=== PATIENT | female | born 1935 | race Caucasian/White ===

== ENCOUNTER 2017-03-13 19:04 | Emergency (ER) | payer MEDICAID ==
[2017-03-13] MEDS ORDERED: DiphenhydrAMINE 50 mg/ml Inj IVP STA (19:16)
[2017-03-13 19:22] VITALS: TEMP 98
--- NOTE | 2017-03-13 19:49 | C.PDOC ---
History Of Present Illness The patient, a 81 y/o female, presents to the ED for evaluation of new onset swelling and redness which occurred around 1 hour [employer]. Patient reports taking some pills related to Parkinson's Disease prior to onset of symptoms. Otherwise , she denies shortness of breath, tongue swelling sensation, trouble swallowing. Chief Complaint (Nursing): Allergic Reaction History Per: Patient History/Exam Limitations: no limitations Onset/Duration Of Symptoms: Hrs Current Symptoms Are (Timing): Still Present Possible Cause: Medication Associated Symptoms: Swelling, Redness. denies: Dyspnea, Trouble Swallowing Home/EMS Treatment: None Additional History Per: Patient Past Medical History Reviewed: Historical Data, Nursing Documentation, Vital Signs Vital Signs: Last Vital Signs Temp 98 F 03/13/17 21:04 Pulse 71 03/13/17 21:04 Resp 16 03/13/17 21:04 BP 123/60 03/13/17 21:04 Pulse Ox 98 03/13/17 21:04 - Medical History PMH: Arthritis, Dementia, Parkinson's Disease Surgical History: No Surg Hx Family History: States: Unknown Family Hx - Social History Hx Alcohol Use: No Hx Substance Use: No - Immunization History Hx Influenza Vaccination: Yes Hx Pneumococcal Vaccination: No Review Of Systems Except As Marked, All Systems Reviewed And Found Negative. ENT: Negative for: Throat Swelling, Other (difficulty swallowing ) Respiratory: Negative for: Shortness of Breath Skin: Positive for: Other (+redness, swellling ) Physical Exam - Physical Exam Appears: Non-toxic, Other (mild distress due to itchiness ) Skin: Warm, Dry, Other (+generalized redness ) Head: Atraumatic, Normacephalic Eye(s): bilateral: Normal Inspection Oral Mucosa: Moist Tongue: Normal Appearing, No Swelling Lips: Normal Appearing, No Swelling Throat: Normal, No Erythema, No Exudate Neck: Supple Chest: Symmetrical, No Deformity, No Tenderness Cardiovascular: Rhythm Regular, No Murmur Respiratory: Normal Breath Sounds, No Rales, No Rhonchi, No Wheezing Back: Normal Inspection, No Vertebral Tenderness, No Paraspinal Tenderness Extremity: Normal ROM, Capillary Refill (less than 2 seconds ) Neurological/Psych: Oriented x3, Normal Speech, Normal Cognition Gait: Steady ED Course And Treatment O2 Sat by Pulse Oximetry: 94 Pulse Ox Interpretation: Normal Progress Note: Patient received Benadryl IV, Pepcid IV, and Solu-Medrol IV. 20: 55 - Patient feels better, itchy but less rash noted. To be discharged. Disposition Counseled Patient/Family Regarding: Diagnosis - Disposition Referrals: [facility] [Outside] Disposition: HOME/ ROUTINE Disposition Time: 20:54 Condition: IMPROVED Prescriptions: DiphenhydrAMINE [Benadryl] 25 mg PO Q4H #20 cap Methylprednisolone [Medrol Dose Pack (21 tabs)] 4 mg PO DAILY #21 mg Instructions: General Allergic Reaction (ED) Forms: Gen Discharge Inst Slovak Print Language: [place] - POA Present On Arrival: None - Clinical Impression Clinical Impression: Allergic reaction - Scribe Statement The provider has reviewed the documentation as recorded by the Scribe (Gladys Ramirez) Provider Attestation: All medical record entries made by the Scribe were at my direction and personally dictated by me. I have reviewed the chart and agree that the record accurately reflects my personal performance of the history, physical exam, medical decision making, and the department course for this patient. I have also personally directed, reviewed, and agree with the discharge instructions and disposition.
[2017-03-13 21:05] VITALS: BP 123/60; PULSE 71; RESP 16
[2017-03-13 21:30] VITALS: O2SAT 94
== END 2017-03-13 21:23 | disposition home or self-care (01) ==
LOC: C.ER 19:04
DX: T78.40XA Allergy, unspecified, initial encounter (principal); X58.XXXA Exposure to other specified factors, initial encounter
CPT/HCPCS: 96374; 96375; 99284; J1200; J2930

== ENCOUNTER 2017-04-23 01:02 | Emergency (ER) | payer MEDICAID ==
[2017-04-23] MEDS ORDERED: DiphenhydrAMINE 50 mg/ml Inj ONE (01:17)
[2017-04-23] MEDS ORDERED: DiphenhydrAMINE 50 mg/ml Inj IVP STA (01:28)
[2017-04-23] MEDS ORDERED: Sodium Chloride 0.9% 1,000 ML IV ONE (01:28)
[2017-04-23 01:33] VITALS: O2SAT 97
[2017-04-23] MEDS ORDERED: Sodium Chloride 0.9% 1,000 ML ONE (01:43)
--- NOTE | 2017-04-23 02:23 | C.PDOC ---
History Of Present Illness Patient is an 82 year old female who presents to the ER with a complaint of an redness and itchiness after eating fish. Patient was seen in the ER 1 month ago for a similar reaction after eating fish. Family attempted to give patient benadryl, however, she vomited. Denies fever or chills. Time Seen by Provider: 04/23/17 01:15 Chief Complaint (Nursing): Allergic Reaction History Per: Patient History/Exam Limitations: no limitations Onset/Duration Of Symptoms: Hrs Current Symptoms Are (Timing): Still Present Context: Food (Fish) Possible Cause: Food (Fish) Associated Symptoms: Itching, Redness Home/EMS Treatment: Benadryl Recent travel outside of the [place]: No Past Medical History Reviewed: Historical Data, Nursing Documentation, Vital Signs Vital Signs: Last Vital Signs Temp 97.4 F L 04/23/17 01:20 Pulse 90 04/23/17 01:20 Resp 18 04/23/17 01:20 BP 133/76 04/23/17 01:20 Pulse Ox 97 04/23/17 02:31 - Medical History PMH: Arthritis, Dementia, Parkinson's Disease Surgical History: No Surg Hx Family History: States: Unknown Family Hx - Social History Hx Alcohol Use: No Hx Substance Use: No - Immunization History Hx Influenza Vaccination: Yes Hx Pneumococcal Vaccination: No Review Of Systems Constitutional: Negative for: Fever, Chills Gastrointestinal: Negative for: Nausea Skin: Positive for: Other (Redness. Itchiness.) Physical Exam - Physical Exam Appears: Non-toxic, No Acute Distress Skin: Warm, Dry, Other (Generalized redness) Head: Atraumatic, Normacephalic Oral Mucosa: Moist Tongue: No Swelling Lips: No Swelling Chest: Symmetrical, No Tenderness Cardiovascular: Rhythm Regular, No Murmur Respiratory: Normal Breath Sounds, No Rales, No Rhonchi, No Wheezing Gastrointestinal/Abdominal: Soft, No Tenderness Neurological/Psych: Oriented x3, Normal Speech, Normal Cognition ED Course And Treatment O2 Sat by Pulse Oximetry: 97 (Room air) Pulse Ox Interpretation: Normal Medical Decision Making Medical Decision Making: Impression: 82 year old female with an allergic reaction. Plan: * Benadryl * Pepcid * Solu-medrol * IV fluids * Markedly improved post meds Discussed not eating fish with pt and family Pt stable for dc Disposition Counseled Patient/Family Regarding: Diagnosis, Need For Followup - Disposition Disposition: HOME/ ROUTINE Disposition Time: 03:34 Condition: GOOD Prescriptions: DiphenhydrAMINE [Benadryl] 1 cap PO Q6H PRN #20 cap PRN Reason: rash or itching Famotidine [Pepcid] 1 tab PO BID #10 tab Prednisone 1 tab PO DAILY #4 tablet Instructions: Food Allergy (ED), General Allergic Reaction (ED) Print Language: ITALIAN - Clinical Impression Clinical Impression: Anaphylactic reaction due to fish - Scribe Statement The provider has reviewed the documentation as recorded by the Scribarley Cardoso All medical record entries made by the Gen were at my direction and personally dictated by me. I have reviewed the chart and agree that the record accurately reflects my personal performance of the history, physical exam, medical decision making, and the department course for this patient. I have also personally directed, reviewed, and agree with the discharge instructions and disposition.
[2017-04-23 04:21] VITALS: BP 100/47; PULSE 88; RESP 84; TEMP 98
== END 2017-04-23 04:19 | disposition home or self-care (01) ==
LOC: C.ER 01:02
DX: T78.03XA Anaphylactic reaction due to other fish, initial encounter (principal)
CPT/HCPCS: 96361; 96374; 96375; 99283; J1200; J2930; J7040

== ENCOUNTER 2017-04-25 18:15 | Emergency (ER) | payer MEDICAID ==
[2017-04-25 20:29] LABS: BASO # 0.1 K/uL (0.0-0.2); BASO % 1.1 % (0.0-2.0); EOS # 0.1 K/uL (0.0-0.7); EOS % 1.3 % (0.0-4.0); HEMATOCRIT 40.6 % (34.0-47.0); LYMPH # 3.9 K/uL (1.0-4.3); LYMPH % 35.3 % (20.0-40.0); MEAN CELL VOLUME 89.9 fL (81.0-99.0); MEAN CORPUSCULAR HEMOGLOBIN 29.8 pg (27.0-31.0); MEAN CORPUSCULAR HGB CONC 33.2 g/dL (33.0-37.0); MEAN PLATELET VOLUME 7.7 fL (7.2-11.7); MONO # 0.8 K/uL (0.0-0.8); MONO % 7.4 % (0.0-10.0); RED CELL DISTRIBUTION WIDTH 15.1 % (11.5-14.5); WHITE BLOOD COUNT 11.1 K/uL (4.8-10.8)
--- NOTE | 2017-04-25 20:56 | CT ---
EXAM: CT Head Without Intravenous Contrast CLINICAL HISTORY: 82 years old, female; Pain and signs and symptoms; Dizziness; Headache; Headache not specified; Additional info: Dizziness/headache x 4days TECHNIQUE: Axial computed tomography images of the head/brain without intravenous contrast. This CT exam was performed using one or more of the following dose reduction techniques: automated exposure control, adjustment of the mA and/or kV according to patient size, and/or use of iterative reconstruction technique. COMPARISON: CT - HEAD W/O CONTRAST 03/14/2016 8:21:04 PM FINDINGS: Brain: Prominence of the sulci and ventricular system consistent with atrophy. Diffuse hypodensity within the white matter consistent with chronic small vessel ischemic change. No intracranial mass, mass effect, or midline shift. No hemorrhage. Ventricles: No hydrocephalus. Bones/joints: Unremarkable. No acute fracture. Soft tissues: Unremarkable. Sinuses: Unremarkable as visualized. No acute sinusitis. Mastoid air cells: Unremarkable as visualized. No mastoid effusion. IMPRESSION: No acute intracranial abnormality.
[2017-04-25 20:57] LABS: CHLORIDE 104 mmol/L (98-107); SODIUM 141 mmol/L (132-148)
[2017-04-25 20:58] LABS: POTASSIUM 3.8 mmol/L (3.6-5.2)
[2017-04-25 21:00] LABS: ALB/GLOB RATIO 1.4 (1.0-2.1); ALKALINE PHOSPHATASE 80 U/L (38-126); ALT/SGPT 19 U/L (9-52); AST/SGOT 22 U/L (14-36); BILIRUBIN,TOTAL 0.5 mg/dL (0.2-1.3); BLOOD UREA NITROGEN 17 mg/dL (7-17); CARBON DIOXIDE 24 mmol/L (22-30); GFR AFRICAN-AMERICAN > 60; TOTAL PROTEIN 7.3 g/dL (6.3-8.3)
[2017-04-25 21:01] LABS: CALCIUM 8.9 mg/dl (8.6-10.4); GLUCOSE,RANDOM 103 mg/dL (65-105)
--- NOTE | 2017-04-25 21:03 | C.PDOC ---
History Of Present Illness 82 y/o female presents to the ED with complaints of intermittent headache for the past week, worsening the last couple days; 4/10 discomfort. Pt also reports associated nausea. Denies vision changes, vomiting, fever, chills or any other complaints. Time Seen by Provider: 04/25/17 20:52 Chief Complaint (Nursing): Headache History Per: Patient History/Exam Limitations: no limitations Onset/Duration Of Symptoms: Days Current Symptoms Are (Timing): Worse Severity: Moderate Pain Scale Rating Of: 4 Quality: "Pain" Preceeding Symptoms: denies: Visual Disturbances Associated Symptoms: Nausea. denies: Blurred Vision, Vomiting Recent travel outside of the [place]: No Past Medical History Reviewed: Historical Data, Nursing Documentation, Vital Signs Vital Signs: Last Vital Signs Temp 97.7 F 04/25/17 22:05 Pulse 75 04/25/17 22:05 Resp 16 04/25/17 22:05 BP 176/84 H 04/25/17 22:05 Pulse Ox 98 04/25/17 22:05 - Medical History PMH: Arthritis, Dementia, Gastritis, Parkinson's Disease Family History: States: Unknown Family Hx - Social History Hx Alcohol Use: No Hx Substance Use: No - Immunization History Hx Tetanus Toxoid Vaccination: No Hx Influenza Vaccination: Yes Hx Pneumococcal Vaccination: No Review Of Systems Constitutional: Negative for: Fever, Chills Eyes: Negative for: Vision Change Gastrointestinal: Positive for: Nausea. Negative for: Vomiting Neurological: Positive for: Headache Physical Exam - Physical Exam Appears: Non-toxic, No Acute Distress Skin: Warm, Dry, No Rash Head: Atraumatic, Normacephalic Eye(s): bilateral: PERRL, EOMI, right: Other (exudate over right eye), left: Normal Inspection Ear(s): Bilateral: Normal Oral Mucosa: Moist Throat: No Erythema, No Exudate Neck: No Midline Cervical Tenderness, No Paracervical Tenderness, Supple, Other (no nuchal rigidity) Chest: Symmetrical Cardiovascular: Rhythm Regular, No Murmur Respiratory: No Rales, No Rhonchi, No Wheezing Gastrointestinal/Abdominal: Soft, No Tenderness, No Distention Back: No CVA Tenderness Extremity: Normal ROM Extremity: Bilateral: Atraumatic Neurological/Psych: Oriented x3, Normal Speech, Normal Cognition Gait: Steady ED Course And Treatment - Laboratory Results Result Diagrams: 04/25/17 20:24 04/25/17 20:24 O2 Sat by Pulse Oximetry: 98 (room air) Pulse Ox Interpretation: Normal - CT Scan/US CT head Other Rad Studies (CT/US): Read By Radiologist, Radiology Report Reviewed CT/US Interpretation: EXAM: CT Head Without Intravenous Contrast. CLINICAL HISTORY: 82 years old, female; Pain and signs and symptoms; Dizziness; Headache ; Headache not specified;. Additional info: Dizziness/headache x 4days. TECHNIQUE: Axial computed tomography images of the head/brain without intravenous contrast. This CT exam. was performed using one or more of the following dose reduction techniques: automated exposure. control, adjustment of the mA and/or kV according to patient size, and/or use of iterative. reconstruction technique. COMPARISON: CT - HEAD W/O CONTRAST 03/14/2016 8:21:04 PM. FINDINGS: Brain: Prominence of the sulci and ventricular system consistent with atrophy. Diffuse hypodensity. within the white matter consistent with chronic small vessel ischemic change. No intracranial mass,. mass effect, or midline shift. No hemorrhage. Ventricles: No hydrocephalus. Bones/joints: Unremarkable. No acute fracture. Soft tissues: Unremarkable. Sinuses: Unremarkable as visualized. No acute sinusitis. Mastoid air cells: Unremarkable as visualized. No mastoid effusion. IMPRESSION: No acute intracranial abnormality. Reevaluation Time: 23:09 Reassessment Condition: Improved Medical Decision Making Medical Decision Making: Upon provider reevaluation patient is feeling better, is medically stable, and requires no further treatment in the ED at this time. Patient will be discharged home with Rx for toradol, blph 10 . Counseling was provided and all questions were answered regarding diagnosis and need for follow up with dr mao. There is agreement to discharge plan. Return if symptoms persist or worsen. Disposition Counseled Patient/Family Regarding: Studies Performed, Diagnosis, Need For Followup, Rx Given - Disposition Referrals: Shaik Mao MD [Staff Provider] - Disposition: HOME/ ROUTINE Disposition Time: 23:09 Condition: FAIR Additional Instructions: Please return if symptoms recur. Prescriptions: Sulfacetamide Sodium [Bleph 10% Eye Drops] 2 drop OD 5XD #1 bottle traMADol [Ultram] 25 mg PO TID PRN #15 tab PRN Reason: Pain, Moderate (4-7) Instructions: Acute Headache (DC), Conjunctivitis (ED) Print Language: CITIZ[place] - Clinical Impression Clinical Impression: Headache, Acute conjunctivitis - Scribe Statement The provider has reviewed the documentation as recorded by the Gen Crane Provider Attestation: All medical record entries made by the Gen were at my direction and personally dictated by me. I have reviewed the chart and agree that the record accurately reflects my personal performance of the history, physical exam, medical decision making, and the department course for this patient. I have also personally directed, reviewed, and agree with the discharge instructions and disposition.
[2017-04-25 22:06] VITALS: PULSE 75
[2017-04-26 00:18] VITALS: BP 152/80; RESP 20; TEMP 98.1; O2SAT 99
== END 2017-04-26 | disposition home or self-care (01) ==
LOC: C.ER 18:15
DX: H10.31 Unspecified acute conjunctivitis, right eye (principal); R51 Headache
CPT/HCPCS: 70450; 80053; 84484; 85025; 85610; 85730; 96374; 99285; J1885

== ENCOUNTER 2017-05-19 11:28 | Inpatient (IN) | payer MEDICAID ==
--- NOTE | 2017-05-19 11:53 | C.PDOC ---
History Of Present Illness 82 year old female presents to the ED with complaints of blood in her stool since this morning. As per patient's daughter, patient has intermittent abdominal pain for the last few months and currently has abdominal pain exacerbated by movement. Patient's daughter also notes history of Parkinson's and right eye corneal transplant. Patient denies any fever, vomiting, or diarrhea. Time Seen by Provider: 05/19/17 11:39 Chief Complaint (Nursing): Abdominal Pain History Per: Family (daughter ) History/Exam Limitations: no limitations Onset/Duration Of Symptoms: Hrs (blood in the stool ), Intermittent Episodes ( of abdominal pain) Current Symptoms Are (Timing): Still Present Location Of Pain/Discomfort: Other (diffuse lower abdominal pain) Radiation Of Pain To:: None Quality Of Discomfort: "Pain" Associated Symptoms: denies: Fever, Chills, Nausea, Vomiting, Diarrhea Exacerbating Factors: Movement Last Bowel Movement: Today Recent travel outside of the [place]: No Additional History Per: Patient, Prior Records Abnormal Vaginal Bleeding: No Past Medical History Reviewed: Historical Data, Nursing Documentation, Vital Signs Vital Signs: Last Vital Signs Temp 99.1 F 05/19/17 11:50 Pulse 86 05/19/17 11:50 Resp 16 05/19/17 11:50 BP 110/67 05/19/17 11:50 Pulse Ox 97 05/19/17 11:50 - Medical History PMH: Arthritis, Dementia, Gastritis, Parkinson's Disease Family History: States: Other Other Family History: non-contributory - Social History Hx Alcohol Use: No Hx Substance Use: No - Immunization History Hx Tetanus Toxoid Vaccination: No Hx Influenza Vaccination: Yes Hx Pneumococcal Vaccination: No Review Of Systems Except As Marked, All Systems Reviewed And Found Negative. Constitutional: Negative for: Fever, Chills Cardiovascular: Negative for: Chest Pain, Palpitations Respiratory: Negative for: Cough, Shortness of Breath Gastrointestinal: Positive for: Abdominal Pain, Hematochezia. Negative for: Nausea, Vomiting, Diarrhea Physical Exam - Physical Exam Appears: Non-toxic, No Acute Distress Skin: Warm, Dry Head: Atraumatic, Normacephalic Oral Mucosa: Moist Neck: Supple Chest: Symmetrical, No Deformity Cardiovascular: Rhythm Regular Respiratory: Normal Breath Sounds, No Accessory Muscle Use, No Rhonchi, No Wheezing Gastrointestinal/Abdominal: Soft, Tenderness (diffuse mild tenderness, non-focal ), No Distention, No Guarding, No Rebound Rectal: Heme Positive, Maroon Stool Extremity: Normal ROM, No Tenderness Neurological/Psych: Oriented x3 ED Course And Treatment - Laboratory Results Result Diagrams: 05/19/17 12:39 05/19/17 12:39 Medical Decision Making Medical Decision Making: EKG interpretation: NSR 73 Disposition - Disposition Disposition: HOSPITALIZED Disposition Time: 13:24 Condition: STABLE - Clinical Impression Clinical Impression: Lower GI bleed - Scribe Statement The provider has reviewed the documentation as recorded by the Dreibarley aFrfan All medical record entries made by the Gen were at my direction and personally dictated by me. I have reviewed the chart and agree that the record accurately reflects my personal performance of the history, physical exam, medical decision making, and the department course for this patient. I have also personally directed, reviewed, and agree with the discharge instructions and disposition.
[2017-05-19] MEDS ORDERED: Sodium Chloride 0.9% 1,000 ML IV ONE (12:21)
--- NOTE | 2017-05-19 12:37 | RAD ---
HISTORY: weak COMPARISON: No prior. FINDINGS: LUNGS: Poor inspiration with low lung volumes, crowded bronchovascular markings and mild bibasilar atelectasis left greater than right. . PLEURA: No significant pleural effusion identified, no pneumothorax apparent. CARDIOVASCULAR: Mild cardiomegaly. OSSEOUS STRUCTURES: Mild multilevel degenerative spondylosis of the thoracic spine. Mild degenerative osteoarthritis both shoulder girdles. VISUALIZED UPPER ABDOMEN: Normal. OTHER FINDINGS: None. IMPRESSION: Poor inspiration with low lung volumes, crowded bronchovascular markings and mild bibasilar atelectasis left greater than right. .
[2017-05-19] MEDS ORDERED: Sodium Chloride 0.9% 1,000 ML ONE (12:44)
[2017-05-19 12:48] LABS: BASO # 0.1 K/uL (0.0-0.2); EOS % 0.3 % (0.0-4.0); HEMOGLOBIN 13.9 g/dL (11.0-16.0); LYMPH # 2.3 K/uL (1.0-4.3); LYMPH % 19.6 % (20.0-40.0); MEAN CELL VOLUME 89.5 fL (81.0-99.0); MEAN CORPUSCULAR HGB CONC 33.5 g/dL (33.0-37.0); MEAN PLATELET VOLUME 8.2 fL (7.2-11.7); MONO # 1.2 K/uL (0.0-0.8); MONO % 10.2 % (0.0-10.0); NEUT # 7.9 K/uL (1.8-7.0); NEUT % 68.9 % (50.0-75.0); RBC 4.62 Mil/uL (3.80-5.20); RED CELL DISTRIBUTION WIDTH 14.4 % (11.5-14.5); WHITE BLOOD COUNT 11.5 K/uL (4.8-10.8)
[2017-05-19 12:52] LABS: ALBUMIN 4.3 g/dL (3.5-5.0)
[2017-05-19 12:54] LABS: AST/SGOT 30 U/L (14-36); GFR AFRICAN-AMERICAN > 60; GFR NON-AFRICAN AMERICAN > 60
[2017-05-19 12:55] LABS: ALB/GLOB RATIO 1.3 (1.0-2.1); ALT/SGPT 20 U/L (9-52); BLOOD UREA NITROGEN 10 mg/dL (7-17); CALCIUM 9.2 mg/dl (8.6-10.4); LIPASE 21 U/L (23-300)
--- NOTE | 2017-05-19 18:00 | CP.PCM.HP ---
Past Patient History - Infectious Disease Hx of Infectious Diseases: None - Past Social History Smoking Status: Never Smoked - NEUROLOGICAL Hx Dementia: Yes Hx Parkinson's Disease: Yes - HEENT Other/Comment: corneal transplant - MUSCULOSKELETAL/RHEUMATOLOGICAL Hx Arthritis: Yes - GASTROINTESTINAL Hx Gastritis: Yes - PSYCHIATRIC Hx Substance Use: No - SURGICAL HISTORY Other/Comment: left foot surgery - ANESTHESIA Hx Anesthesia: Yes Hx Anesthesia Reactions: No Meds Allergies/Adverse Reactions: Allergies Allergy/AdvReac Type Severity Reaction Status Date / Time shellfish derived Allergy Verified 05/19/17 11:50 seafood Allergy Uncoded 04/25/17 19:00 Physical Exam - Constitutional Appears: Well - Head Exam Head Exam: ATRAUMATIC, NORMAL INSPECTION, NORMOCEPHALIC - Eye Exam Eye Exam: EOMI, Normal appearance, PERRL Pupil Exam: NORMAL ACCOMODATION, PERRL - ENT Exam ENT Exam: Mucous Membranes Moist, Normal Exam - Neck Exam Neck exam: Positive for: Normal Inspection - Respiratory Exam Respiratory Exam: Decreased Breath Sounds - Cardiovascular Exam Cardiovascular Exam: REGULAR RHYTHM, +S1, +S2 - GI/Abdominal Exam GI & Abdominal Exam: Diminished Bowel Sounds, Soft - Rectal Exam Rectal Exam: Deferred Results - Vital Signs Recent Vital Signs: Last Vital Signs Temp 98.6 F 05/19/17 17:00 Pulse 72 05/19/17 17:00 Resp 20 05/19/17 17:00 BP 120/73 05/19/17 17:00 Pulse Ox 97 05/19/17 17:00 - Labs Result Diagrams: 05/19/17 12:39 05/19/17 12:39
--- NOTE | 2017-05-20 08:04 | CP.PCM.CON ---
<Bessie Barbosa - Last Filed: 05/20/17 09:59> History of Present Illness - History of Present Illness History of Present Illness: Gastroenterology Fellow/PGY5 Consult Note 82 year old female with history of Parkinson's disease presenting with abdominal pain and black stool. Patient oriented to person and place with history obtained via evly device. Patient describes daily, non- progressive, moderate left marian-abdomen pain for the last two months. She notes black stools for the last week with last bowel movement being three days ago. Denies prior similar episodes. Associated weight loss (unable to quantify), loss of appetite, dysuria, and polyuria. She notes prior history of daily formed bowel habit without straining or hard stools. Denies nausea, vomiting, hematemesis, acid reflux, indigestion, heartburn, bloating, diarrhea, constipation, hematochezia, chest pain, shortness of breath, sick contacts, recent antibiotics, recent travel, NSAID use, or Alcohol use. No prior EGD or colonoscopy. 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 - MUSCULOSKELETAL/RHEUMATOLOGICAL Hx Arthritis: Yes Hx Falls: No - GASTROINTESTINAL Hx Gastritis: Yes - PSYCHIATRIC Hx Substance Use: No - SURGICAL HISTORY Other/Comment: left foot surgery - ANESTHESIA Hx Anesthesia: Yes Hx Anesthesia Reactions: No Meds Allergies/Adverse Reactions: Allergies Allergy/AdvReac Type Severity Reaction Status Date / Time shellfish derived Allergy Verified 05/19/17 11:50 seafood Allergy Uncoded 04/25/17 19:00 - Medications Medications: Current Medications Carbidopa/Levodopa (Sinemet 10/100) 1 tab PO TID [facility] Clonazepam (Klonopin) 0.5 mg PO HS [facility] Last Admin: 05/19/17 21:21 Dose: 0.5 mg Ergocalciferol (Drisdol 50,000 Intl Units Cap) 1 cap PO QWK [facility] Famotidine (Pepcid) 20 mg PO BID [facility] Gabapentin (Neurontin) 300 mg PO BID [facility] Meclizine HCl (Antivert) 12.5 mg PO BID [facility] Pantoprazole Sodium (Protonix Ec Tab) 40 mg PO DAILY [facility] Sertraline HCl (Zoloft) 50 mg PO DAILY [facility] Vitamin B Complex/Vitamin C (Berocca) 1 tab PO DAILY [facility] Physical Exam - Constitutional Appears: Non-toxic, No Acute Distress - Head Exam Head Exam: ATRAUMATIC, NORMOCEPHALIC - Eye Exam Eye Exam: EOMI, PERRL Pupil Exam: PERRL. absent: Miosis, Mydriatic - ENT Exam ENT Exam: Mucous Membranes Moist, Normal Oropharynx - Neck Exam Neck exam: Positive for: Full Rom, Normal Inspection - Respiratory Exam Respiratory Exam: Clear to Auscultation Bilateral. absent: Rales, Rhonchi, Wheezes - Cardiovascular Exam Cardiovascular Exam: RRR, +S1, +S2. absent: Gallop, Rubs - GI/Abdominal Exam GI & Abdominal Exam: Normal Bowel Sounds, Soft, Tenderness. absent: Distended, Firm, Guarding, Organomegaly, Rebound, Rigid Additional comments: LUQ and LLQ tenderness to palpation - Rectal Exam Rectal Exam: absent: Hemorrhoids, Fecal Impaction Additional comments: maroon formed soft stool in rectal vault - Extremities Exam Extremities exam: Positive for: normal inspection. Negative for: pedal edema - Neurological Exam Neurological exam: Alert - Psychiatric Exam Psychiatric exam: Normal Affect, Normal Mood - Skin Skin Exam: Dry, Intact, Normal Color, Warm Results - Vital Signs Recent Vital Signs: Last Vital Signs Temp 98.6 F 05/19/17 23:37 Pulse 73 05/19/17 23:37 Resp 20 05/19/17 23:37 BP 135/69 05/19/17 23:37 Pulse Ox 96 05/19/17 23:37 - Labs Result Diagrams: 05/20/17 08:23 05/20/17 08:23 Assessment & Plan - Assessment and Plan (Free Text) Assessment: 82 year old female with history of Parkinson's disease presenting with abdominal pain and black stool. Active treatment of GI bleed and abdominal pain. No prior EGD or colonoscopy. Plan: >DDx: constipation, diverticular bleed, colitis >H/H stable >supportive care: PPI, pain control >clear liquid diet as tolerated >CT A/P IV contrast to evaluate abdominal pain and acute pathology >U/A with urine culture to evaluate dysuria >will follow clinical course <Shashi Marc - Last Filed: 05/20/17 11:39> Meds - Medications Medications: Current Medications Carbidopa/Levodopa (Sinemet 10/100) 1 tab PO TID [facility] Last Admin: 05/20/17 09:14 Dose: 1 tab Clonazepam (Klonopin) 0.5 mg PO HS [facility] Last Admin: 05/19/17 21:21 Dose: 0.5 mg Ergocalciferol (Drisdol 50,000 Intl Units Cap) 1 cap PO QWK [facility] Famotidine (Pepcid) 20 mg PO BID [facility] Last Admin: 05/20/17 09:08 Dose: 20 mg Gabapentin (Neurontin) 300 mg PO BID [facility] Last Admin: 05/20/17 09:08 Dose: 300 mg Meclizine HCl (Antivert) 12.5 mg PO BID [facility] Last Admin: 05/20/17 09:08 Dose: 12.5 mg Pantoprazole Sodium (Protonix Ec Tab) 40 mg PO DAILY [facility] Last Admin: 05/20/17 09:08 Dose: 40 mg Potassium Chloride (K-Dur 20 Meq Er Tab) 40 meq PO DAILY [facility] Stop: 05/22/17 10:01 Last Admin: 05/20/17 10:47 Dose: 40 meq Sertraline HCl (Zoloft) 50 mg PO DAILY [facility] Last Admin: 05/20/17 09:08 Dose: 50 mg Vitamin B Complex/Vitamin C (Berocca) 1 tab PO DAILY [facility] Last Admin: 05/20/17 09:08 Dose: 1 tab Results - Vital Signs Recent Vital Signs: Last Vital Signs Temp 98.6 F 05/19/17 23:37 Pulse 73 05/19/17 23:37 Resp 20 05/19/17 23:37 BP 135/69 05/19/17 23:37 Pulse Ox 96 05/19/17 23:37 - Labs Result Diagrams: 05/20/17 08:23 05/20/17 08:23 Labs: Laboratory Results - last 24 hr 05/20/17 05/20/17 05/20/17 08:23 08:23 10:22 WBC 8.3 RBC 4.34 Hgb 13.2 Hct 38.8 MCV 89.5 MCH 30.3 MCHC 33.9 RDW 14.3 Plt Count 247 MPV 8.6 Neut % (Auto) 58.1 Lymph % (Auto) 26.9 Lamar % (Auto) 11.3 H Eos % (Auto) 2.6 Baso % (Auto) 1.1 Neut # 4.8 Lymph # 2.2 Lamar # 0.9 H Eos # 0.2 Baso # 0.1 Sodium 143 Potassium 3.4 L Chloride 108 H Carbon Dioxide 25 Anion Gap 14 BUN 7 Creatinine 0.6 L Est GFR ( Amer) > 60 Est GFR (Non-Af Amer) > 60 Random Glucose 105 Calcium 8.7 Total Bilirubin 1.0 AST 22 ALT 21 Alkaline Phosphatase 66 Total Protein 6.5 Albumin 3.6 Globulin 2.9 Albumin/Globulin Ratio 1.2 Urine Color Yellow Urine Clarity Hazy Urine pH 6.0 Ur Specific [place] 1.010 Urine Protein Negative Urine Glucose (UA) Normal Urine Ketones Trace Urine Blood 2+ H Urine Nitrate Negative Urine Bilirubin Negative Urine Urobilinogen Normal Ur Leukocyte Esterase Neg Urine WBC (Auto) 3 Urine RBC (Auto) 24 H Ur Squamous Epith Cells 4 Attending/Attestation - Attestation I have personally seen and examined this patient.: Yes I have fully participated in the care of the patient.: Yes I have reviewed all pertinent clinical information: Yes Notes (Text): 05/20/17 11:38 82 year old female with h/o Parkinson's disease admitted with abdominal pain and blood in the stool. 1. Abdominal pain 2. Blood in the stool Plan: -no significant anemia or drop in hemoglobin -bleeding may be hemorrhoidal, although she doesn't have prior colonoscopy -recommend CT abdomen/pelvis to evaluate abdominal pain further -supportive care in the mean time with pain control -monitor for further bleeding -liquid diet -evaluate for UTI as above
[2017-05-20 08:35] LABS: BASO # 0.1 K/uL (0.0-0.2); BASO % 1.1 % (0.0-2.0); EOS # 0.2 K/uL (0.0-0.7); EOS % 2.6 % (0.0-4.0); HEMOGLOBIN 13.2 g/dL (11.0-16.0); LYMPH # 2.2 K/uL (1.0-4.3); LYMPH % 26.9 % (20.0-40.0); MEAN CELL VOLUME 89.5 fL (81.0-99.0); MEAN CORPUSCULAR HEMOGLOBIN 30.3 pg (27.0-31.0); MEAN CORPUSCULAR HGB CONC 33.9 g/dL (33.0-37.0); MEAN PLATELET VOLUME 8.6 fL (7.2-11.7); MONO # 0.9 K/uL (0.0-0.8); MONO % 11.3 % (0.0-10.0); NEUT # 4.8 K/uL (1.8-7.0); NEUT % 58.1 % (50.0-75.0); RBC 4.34 Mil/uL (3.80-5.20); RED CELL DISTRIBUTION WIDTH 14.3 % (11.5-14.5); WHITE BLOOD COUNT 8.3 K/uL (4.8-10.8)
[2017-05-20 08:44] LABS: ALBUMIN 3.6 g/dL (3.5-5.0)
[2017-05-20 08:47] LABS: ALB/GLOB RATIO 1.2 (1.0-2.1); ALT/SGPT 21 U/L (9-52); AST/SGOT 22 U/L (14-36); GFR AFRICAN-AMERICAN > 60; GFR NON-AFRICAN AMERICAN > 60
[2017-05-20 08:48] LABS: BLOOD UREA NITROGEN 7 mg/dL (7-17); CALCIUM 8.7 mg/dl (8.6-10.4)
[2017-05-20] MEDS: Pantoprazole 40 mg EC Tab PO SCH (09:08)
[2017-05-20] MEDS: Vitamin B Complex/Vitamin C Tab PO SCH (09:08)
[2017-05-20 10:36] LABS: SQUAMOUS EPITHIAL 4 /hpf (0-5); URINE BILIRUBIN NEGATIVE (NEGATIVE); URINE BLOOD 2+ (NEGATIVE); URINE CLARITY Hazy (Clear); URINE COLOR Yellow (YELLOW); URINE GLUCOSE (UA) NORMAL (Normal); URINE LEUKOCYTE ESTERASE NEG Leu/uL (Negative); URINE NITRATE NEGATIVE (NEGATIVE); URINE PROTEIN NEGATIVE (NEGATIVE); URINE UROBILINOGEN NORMAL mg/dL (0.2-1.0)
[2017-05-20] MEDS: Potassium Chloride 20 mEq ER Tab PO SCH (10:47)
--- NOTE | 2017-05-20 14:24 | CP.PCM.PN ---
Subjective - Date & Time of Evaluation Date of Evaluation: 05/20/17 Time of Evaluation: 09:00 - Subjective Subjective: clinically same Objective - Vital Signs/Intake and Output Vital Signs (last 24 hours): Temp Pulse Resp BP Pulse Ox 98.6 F 73 20 135/69 96 05/19/17 23:37 05/19/17 23:37 05/19/17 23:37 05/19/17 23:37 05/19/17 23:37 Intake and Output: 05/20/17 05/20/17 06:59 18:59 Intake Total 150 Balance 150 - Medications Medications: Current Medications Carbidopa/Levodopa (Sinemet 10/100) 1 tab PO TID [facility] Last Admin: 05/20/17 13:11 Dose: 1 tab Clonazepam (Klonopin) 0.5 mg PO HS [facility] Last Admin: 05/19/17 21:21 Dose: 0.5 mg Ergocalciferol (Drisdol 50,000 Intl Units Cap) 1 cap PO QWK [facility] Famotidine (Pepcid) 20 mg PO BID [facility] Last Admin: 05/20/17 09:08 Dose: 20 mg Gabapentin (Neurontin) 300 mg PO BID [facility] Last Admin: 05/20/17 09:08 Dose: 300 mg Meclizine HCl (Antivert) 12.5 mg PO BID [facility] Last Admin: 05/20/17 09:08 Dose: 12.5 mg Pantoprazole Sodium (Protonix Ec Tab) 40 mg PO DAILY [facility] Last Admin: 05/20/17 09:08 Dose: 40 mg Potassium Chloride (K-Dur 20 Meq Er Tab) 40 meq PO DAILY [facility] Stop: 05/22/17 10:01 Last Admin: 05/20/17 10:47 Dose: 40 meq Sertraline HCl (Zoloft) 50 mg PO DAILY [facility] Last Admin: 05/20/17 09:08 Dose: 50 mg Vitamin B Complex/Vitamin C (Berocca) 1 tab PO DAILY [facility] Last Admin: 05/20/17 09:08 Dose: 1 tab - Labs Labs: 05/20/17 08:23 05/20/17 08:23 - Constitutional Appears: Well - Head Exam Head Exam: ATRAUMATIC, NORMAL INSPECTION, NORMOCEPHALIC - Eye Exam Eye Exam: EOMI, Normal appearance, PERRL Pupil Exam: NORMAL ACCOMODATION, PERRL - ENT Exam ENT Exam: Mucous Membranes Moist, Normal Exam - Neck Exam Neck Exam: Full ROM, Normal Inspection. absent: Lymphadenopathy - Respiratory Exam Respiratory Exam: Decreased Breath Sounds - Cardiovascular Exam Cardiovascular Exam: REGULAR RHYTHM, +S1, +S2 - GI/Abdominal Exam GI & Abdominal Exam: Soft, Diminished Bowel Sounds - Rectal Exam Rectal Exam: Deferred
--- NOTE | 2017-05-20 14:57 | CT ---
CT abdomen and pelvis History: Abdominal pain. Comparison: None available. Technique: Multi-echo multiplanar sequences were performed through the abdomen and pelvis without the use of intravenous contrast. Subsequently, sagittal and coronal reformatted images were obtained. This CT exam was performed using one or more of the following dose reduction techniques: Automated exposure control, adjustment of the mA and/or kV according to patient size, and/or use of iterative reconstruction technique. Findings: Please note this is a limited evaluation of the abdomen and pelvis given the lack of oral and intravenous contrast. Atelectasis at the lung bases. Prominent liver with mild fatty infiltration. Distended gallbladder. Spleen is preserved. Nodular thickening of the adrenals. Fatty atrophy of the pancreas. Upper abdominal bowel is preserved. Right kidney: Multiple low-attenuation lesions seen throughout the right kidney, the largest of which is seen in the midpole measuring up to 2.6 centimeters demonstrating a Hounsfield unit attenuation of 2 suggestive for a cyst. An additional more exophytic lesion seen off the lateral aspect of the midpole more inferiorly in the right kidney measures up to 1.2 centimeters demonstrating a Hounsfield unit attenuation of 19, indeterminate. These lesions may be better evaluated with ultrasound and or multiphasic CT or MR. Underdistended urinary bladder. Heterogeneous uterus. Under distended sigmoid colon. Fecal retention in the colon. Fluid-filled colon suggestive for diarrhea. Appendix is preserved. Calcification and plaque within the aorta and iliac vessels. Few shotty para-aortic and mesenteric lymph nodes. Degenerative changes in the spine. Grade 1 anterolisthesis of L5 on S1 with associated pars defects. Multilevel posterior disc osteophyte complexes. Prominent dextroscoliotic curvature of the lower lumbar spine. Impression: Please note this is a limited evaluation of the abdomen and pelvis given the lack of oral and intravenous contrast. 1. Under distended sigmoid colon. Fecal retention in parts of the colon. Parts of the colon are fluid-filled suggestive for diarrhea. 2. Multiple low-attenuation lesions seen throughout the right kidney, the largest of which is seen in the midpole measuring up to 2.6 centimeters demonstrating a Hounsfield unit attenuation of 2 suggestive for a cyst. An additional more exophytic lesion seen off the lateral aspect of the midpole more inferiorly in the right kidney measures up to 1.2 centimeters demonstrating a Hounsfield unit attenuation of 19, is indeterminate. These lesions may be better evaluated with ultrasound and or multiphasic CT or MR. 3. Atelectasis at the lung bases. 4. Prominent liver with mild fatty infiltration. 5. Distended gallbladder. 6. Nodular thickening of the adrenals. 7. Fatty atrophy of the pancreas. 8. Grade 1 anterolisthesis of L5 on S1 with associated pars defects. Multilevel posterior disc osteophyte complexes. Prominent dextroscoliotic curvature of the lower lumbar spine.
[2017-05-20] MEDS: Potassium Chloride 10 mEq ER Tab PO SCH (18:41)
[2017-05-21] MEDS: Potassium Chloride 10 mEq ER Tab PO SCH (08:30)
[2017-05-21 08:41] LABS: BASO # 0.1 K/uL (0.0-0.2); BASO % 1.1 % (0.0-2.0); EOS # 0.3 K/uL (0.0-0.7); EOS % 4.1 % (0.0-4.0); HEMOGLOBIN 13.4 g/dL (11.0-16.0); LYMPH # 2.8 K/uL (1.0-4.3); LYMPH % 36.4 % (20.0-40.0); MEAN CELL VOLUME 89.7 fL (81.0-99.0); MEAN CORPUSCULAR HEMOGLOBIN 30.2 pg (27.0-31.0); MEAN CORPUSCULAR HGB CONC 33.7 g/dL (33.0-37.0); MEAN PLATELET VOLUME 8.2 fL (7.2-11.7); MONO # 0.9 K/uL (0.0-0.8); MONO % 11.7 % (0.0-10.0); NEUT # 3.5 K/uL (1.8-7.0); NEUT % 46.7 % (50.0-75.0); NRBC % 0.1 % (0.0-2.0); RBC 4.43 Mil/uL (3.80-5.20); RED CELL DISTRIBUTION WIDTH 14.4 % (11.5-14.5); WHITE BLOOD COUNT 7.6 K/uL (4.8-10.8)
[2017-05-21 08:53] LABS: ALBUMIN 3.7 g/dL (3.5-5.0)
[2017-05-21 08:56] LABS: ALB/GLOB RATIO 1.2 (1.0-2.1); ALT/SGPT 27 U/L (9-52); AST/SGOT 28 U/L (14-36); BLOOD UREA NITROGEN 7 mg/dL (7-17); CALCIUM 8.8 mg/dl (8.6-10.4); GFR AFRICAN-AMERICAN > 60; GFR NON-AFRICAN AMERICAN > 60
--- NOTE | 2017-05-21 09:31 | CP.PCM.PN ---
<Bessie Barbosa - Last Filed: 05/21/17 09:28> Subjective - Date & Time of Evaluation Date of Evaluation: 05/21/17 Time of Evaluation: 09:28 - Subjective Subjective: Gastroenterology Fellow/PGY5 Progress Note Patient notes improving abdominal pain. Tolerating clear lquid diet. One formed bowel movement yesterday without hematochezia or melena. A 12-point review of systems negative except for as above. Objective - Vital Signs/Intake and Output Vital Signs (last 24 hours): Temp Pulse Resp BP Pulse Ox 99 F 67 20 97/61 L 98 05/21/17 00:00 05/21/17 00:00 05/21/17 00:00 05/21/17 00:00 05/21/17 00:00 Intake and Output: 05/21/17 05/21/17 06:59 18:59 Intake Total 240 Balance 240 - Medications Medications: Current Medications Carbidopa/Levodopa (Sinemet 10/100) 1 tab PO TID [facility] Last Admin: 05/20/17 19:00 Dose: 1 tab Clonazepam (Klonopin) 0.5 mg PO HS [facility] Last Admin: 05/20/17 22:13 Dose: 0.5 mg Ergocalciferol (Drisdol 50,000 Intl Units Cap) 1 cap PO QWK [facility] Famotidine (Pepcid) 20 mg PO BID [facility] Last Admin: 05/20/17 19:00 Dose: 20 mg Gabapentin (Neurontin) 300 mg PO BID [facility] Last Admin: 05/20/17 18:59 Dose: 300 mg Meclizine HCl (Antivert) 12.5 mg PO BID [facility] Last Admin: 05/20/17 18:59 Dose: 12.5 mg Pantoprazole Sodium (Protonix Ec Tab) 40 mg PO DAILY [facility] Last Admin: 05/20/17 09:08 Dose: 40 mg Polyethylene Glycol (Miralax) 17 gm PO DAILY [facility] Potassium Chloride (K-Dur 20 Meq Er Tab) 40 meq PO DAILY [facility] Stop: 05/22/17 10:01 Last Admin: 05/20/17 10:47 Dose: 40 meq Potassium Chloride (Klor-Con 10) 10 meq PO DAILY@0800 [facility] Last Admin: 05/20/17 18:41 Dose: Not Given Sertraline HCl (Zoloft) 50 mg PO DAILY [facility] Last Admin: 05/20/17 09:08 Dose: 50 mg Vitamin B Complex/Vitamin C (Berocca) 1 tab PO DAILY [facility] Last Admin: 05/20/17 09:08 Dose: 1 tab - Labs Labs: 05/21/17 08:24 05/21/17 08:24 - Constitutional Appears: Non-toxic, No Acute Distress - Head Exam Head Exam: ATRAUMATIC, NORMOCEPHALIC - Eye Exam Eye Exam: EOMI, PERRL Pupil Exam: PERRL. absent: Miosis, Mydriatic - ENT Exam ENT Exam: Mucous Membranes Moist, Normal Oropharynx - Neck Exam Neck Exam: Full ROM, Normal Inspection - Respiratory Exam Respiratory Exam: Clear to Ausculation Bilateral. absent: Rales, Rhonchi, Wheezes - Cardiovascular Exam Cardiovascular Exam: RRR, +S1, +S2. absent: Gallop, Rubs - GI/Abdominal Exam GI & Abdominal Exam: Soft, Tenderness, Normal Bowel Sounds. absent: Distended, Firm, Guarding, Rigid, Organomegaly, Rebound Additional comments: LUQ mild discomfort to palpation - Extremities Exam Extremities Exam: Normal Inspection. absent: Pedal Edema - Neurological Exam Neurological Exam: Alert, Awake - Psychiatric Exam Psychiatric exam: Normal Affect, Normal Mood - Skin Skin Exam: Dry, Intact, Normal Color, Warm Assessment and Plan - Assessment and Plan (Free Text) Assessment: 82 year old female with history of Parkinson's disease presenting with abdominal pain and black stool. Active treatment of constipation and blood in stool likely secondary to hemorrhoids. No prior EGD or colonoscopy. Plan: >CT A/P IV contrast- fecal retention >ordered Miralax daily >H/H stable >continue Pepcid daily >supportive care: pain control >advance to full liquids, advance as tolerated >will follow clinical course <Shashi Marc - Last Filed: 05/21/17 10:56> Objective - Vital Signs/Intake and Output Vital Signs (last 24 hours): Temp Pulse Resp BP Pulse Ox 98.7 F 71 20 166/95 H 95 05/21/17 08:00 05/21/17 08:00 05/21/17 08:00 05/21/17 08:00 05/21/17 08:00 Intake and Output: 05/21/17 05/21/17 06:59 18:59 Intake Total 240 Balance 240 - Medications Medications: Current Medications Carbidopa/Levodopa (Sinemet 10/100) 1 tab PO TID [facility] Last Admin: 05/21/17 09:51 Dose: 1 tab Clonazepam (Klonopin) 0.5 mg PO HS [facility] Last Admin: 05/20/17 22:13 Dose: 0.5 mg Ergocalciferol (Drisdol 50,000 Intl Units Cap) 1 cap PO QWK [facility] Famotidine (Pepcid) 20 mg PO BID [facility] Last Admin: 05/21/17 09:52 Dose: 20 mg Gabapentin (Neurontin) 300 mg PO BID [facility] Last Admin: 05/21/17 09:52 Dose: 300 mg Meclizine HCl (Antivert) 12.5 mg PO BID [facility] Last Admin: 05/21/17 09:52 Dose: 12.5 mg Pantoprazole Sodium (Protonix Ec Tab) 40 mg PO DAILY [facility] Last Admin: 05/21/17 09:53 Dose: 40 mg Polyethylene Glycol (Miralax) 17 gm PO DAILY [facility] Last Admin: 05/21/17 09:52 Dose: 17 gm Potassium Chloride (K-Dur 20 Meq Er Tab) 40 meq PO DAILY [facility] Stop: 05/22/17 10:01 Last Admin: 05/21/17 09:52 Dose: 40 meq Potassium Chloride (Klor-Con 10) 10 meq PO DAILY@0800 [facility] Last Admin: 05/21/17 08:30 Dose: 10 meq Sertraline HCl (Zoloft) 50 mg PO DAILY [facility] Last Admin: 05/21/17 09:52 Dose: 50 mg Vitamin B Complex/Vitamin C (Berocca) 1 tab PO DAILY [facility] Last Admin: 05/21/17 09:52 Dose: 1 tab - Labs Labs: 05/21/17 08:24 05/21/17 08:24 Attending/Attestation - Attestation I have personally seen and examined this patient.: Yes I have fully participated in the care of the patient.: Yes I have reviewed all pertinent clinical information, including history, physical exam and plan: Yes Notes (Text): 05/21/17 10:55 82 year old female with h/o Parkinson's disease admitted with abdominal pain and blood in the stool. 1. Abdominal pain 2. Blood in the stool Plan: -no significant anemia or drop in hemoglobin -bleeding may be hemorrhoidal, resolved -CT scan was unremarkable apart from fecal retention -start bowel regimen with miralax -diet as tolerated -pain improved -will sign off
[2017-05-21] MEDS: Vitamin B Complex/Vitamin C Tab PO SCH (09:52)
[2017-05-21] MEDS: POLYETHYLENE GLYCOL 3350 17 GM/Dose PACKET PO SCH (09:52)
[2017-05-21] MEDS: Potassium Chloride 20 mEq ER Tab PO SCH (09:52)
[2017-05-21] MEDS: Pantoprazole 40 mg EC Tab PO SCH (09:53)
--- NOTE | 2017-05-21 20:53 | CP.PCM.PN ---
Subjective - Date & Time of Evaluation Date of Evaluation: 05/21/17 Time of Evaluation: 08:20 - Subjective Subjective: clinically same Objective - Vital Signs/Intake and Output Vital Signs (last 24 hours): Temp Pulse Resp BP Pulse Ox 97.1 F L 66 20 110/61 97 05/21/17 16:00 05/21/17 16:00 05/21/17 16:00 05/21/17 16:00 05/21/17 16:00 Intake and Output: 05/21/17 05/22/17 18:59 06:59 Intake Total 350 Balance 350 - Medications Medications: Current Medications Carbidopa/Levodopa (Sinemet 10/100) 1 tab PO TID [facility] Last Admin: 05/21/17 18:28 Dose: 1 tab Clonazepam (Klonopin) 0.5 mg PO HS [facility] Last Admin: 05/20/17 22:13 Dose: 0.5 mg Ergocalciferol (Drisdol 50,000 Intl Units Cap) 1 cap PO QWK [facility] Famotidine (Pepcid) 20 mg PO BID [facility] Last Admin: 05/21/17 18:28 Dose: 20 mg Gabapentin (Neurontin) 300 mg PO BID [facility] Last Admin: 05/21/17 18:28 Dose: 300 mg Meclizine HCl (Antivert) 12.5 mg PO BID [facility] Last Admin: 05/21/17 18:28 Dose: 12.5 mg Pantoprazole Sodium (Protonix Ec Tab) 40 mg PO DAILY [facility] Last Admin: 05/21/17 09:53 Dose: 40 mg Polyethylene Glycol (Miralax) 17 gm PO DAILY [facility] Last Admin: 05/21/17 09:52 Dose: 17 gm Potassium Chloride (K-Dur 20 Meq Er Tab) 40 meq PO DAILY [facility] Stop: 05/22/17 10:01 Last Admin: 05/21/17 09:52 Dose: 40 meq Potassium Chloride (Klor-Con 10) 10 meq PO DAILY@0800 [facility] Last Admin: 05/21/17 08:30 Dose: 10 meq Sertraline HCl (Zoloft) 50 mg PO DAILY [facility] Last Admin: 05/21/17 09:52 Dose: 50 mg Vitamin B Complex/Vitamin C (Berocca) 1 tab PO DAILY [facility] Last Admin: 05/21/17 09:52 Dose: 1 tab - Labs Labs: 05/21/17 08:24 05/21/17 08:24 - Constitutional Appears: Well - Head Exam Head Exam: ATRAUMATIC, NORMAL INSPECTION, NORMOCEPHALIC - Eye Exam Eye Exam: EOMI, Normal appearance, PERRL Pupil Exam: NORMAL ACCOMODATION, PERRL - ENT Exam ENT Exam: Mucous Membranes Moist, Normal Exam - Neck Exam Neck Exam: Full ROM, Normal Inspection. absent: Lymphadenopathy - Respiratory Exam Respiratory Exam: Decreased Breath Sounds - Cardiovascular Exam Cardiovascular Exam: REGULAR RHYTHM, +S1, +S2 - GI/Abdominal Exam GI & Abdominal Exam: Soft, Diminished Bowel Sounds - Rectal Exam Rectal Exam: Deferred
[2017-05-22 08:24] LABS: BASO # 0.1 K/uL (0.0-0.2); BASO % 1.3 % (0.0-2.0); EOS # 0.4 K/uL (0.0-0.7); EOS % 4.7 % (0.0-4.0); HEMOGLOBIN 14.2 g/dL (11.0-16.0); LYMPH % 37.9 % (20.0-40.0); MEAN CELL VOLUME 89.4 fL (81.0-99.0); MEAN CORPUSCULAR HEMOGLOBIN 30.6 pg (27.0-31.0); MEAN CORPUSCULAR HGB CONC 34.2 g/dL (33.0-37.0); MEAN PLATELET VOLUME 8.4 fL (7.2-11.7); MONO # 0.8 K/uL (0.0-0.8); MONO % 9.7 % (0.0-10.0); NEUT # 3.6 K/uL (1.8-7.0); NEUT % 46.4 % (50.0-75.0); NRBC % 0.1 % (0.0-2.0); RBC 4.66 Mil/uL (3.80-5.20); RED CELL DISTRIBUTION WIDTH 14.4 % (11.5-14.5); WHITE BLOOD COUNT 7.8 K/uL (4.8-10.8)
[2017-05-22] MEDS: Potassium Chloride 10 mEq ER Tab PO SCH (08:30)
[2017-05-22 08:43] LABS: ALBUMIN 3.8 g/dL (3.5-5.0)
[2017-05-22 08:46] LABS: ALB/GLOB RATIO 1.2 (1.0-2.1); AST/SGOT 30 U/L (14-36); BLOOD UREA NITROGEN 11 mg/dL (7-17); GFR AFRICAN-AMERICAN > 60; GFR NON-AFRICAN AMERICAN > 60
[2017-05-22 08:47] LABS: ALT/SGPT 31 U/L (9-52); CALCIUM 9.2 mg/dl (8.6-10.4)
[2017-05-22] MEDS: POLYETHYLENE GLYCOL 3350 17 GM/Dose PACKET PO SCH (09:44)
[2017-05-22] MEDS: Vitamin B Complex/Vitamin C Tab PO SCH (09:45)
[2017-05-22] MEDS: Pantoprazole 40 mg EC Tab PO SCH (09:45)
--- NOTE | 2017-05-22 10:50 | CARD ---
APPROVED REPORT EKG Measurement Heart [id number] <Conclusion> Normal sinus rhythm Normal ECG
--- NOTE | 2017-05-22 14:11 | CP.PCM.PN ---
Subjective - Date & Time of Evaluation Date of Evaluation: 05/22/17 Time of Evaluation: 08:20 - Subjective Subjective: clinically same Objective - Vital Signs/Intake and Output Vital Signs (last 24 hours): Temp Pulse Resp BP Pulse Ox 98.6 F 67 19 123/72 95 05/22/17 08:42 05/22/17 08:42 05/22/17 08:42 05/22/17 08:42 05/22/17 08:42 Intake and Output: 05/22/17 05/22/17 06:59 18:59 Intake Total 300 Balance 300 - Medications Medications: Current Medications Carbidopa/Levodopa (Sinemet ) 1 tab PO TID [facility] Last Admin: 05/22/17 13:03 Dose: 1 tab Clonazepam (Klonopin) 0.5 mg PO HS [facility] Last Admin: 05/21/17 23:00 Dose: Not Given Ergocalciferol (Drisdol 50,000 Intl Units Cap) 1 cap PO QWK [facility] Famotidine (Pepcid) 20 mg PO BID [facility] Last Admin: 05/22/17 09:44 Dose: 20 mg Gabapentin (Neurontin) 300 mg PO BID [facility] Last Admin: 05/22/17 09:44 Dose: 300 mg Meclizine HCl (Antivert) 12.5 mg PO BID [facility] Last Admin: 05/22/17 09:45 Dose: 12.5 mg Pantoprazole Sodium (Protonix Ec Tab) 40 mg PO DAILY [facility] Last Admin: 05/22/17 09:45 Dose: 40 mg Polyethylene Glycol (Miralax) 17 gm PO DAILY [facility] Last Admin: 05/22/17 09:44 Dose: 17 gm Potassium Chloride (Klor-Con 10) 10 meq PO DAILY@0800 [facility] Last Admin: 05/22/17 08:30 Dose: 10 meq Sertraline HCl (Zoloft) 50 mg PO DAILY [facility] Last Admin: 05/22/17 09:45 Dose: 50 mg Vitamin B Complex/Vitamin C (Berocca) 1 tab PO DAILY [facility] Last Admin: 05/22/17 09:45 Dose: 1 tab - Labs Labs: 05/22/17 08:10 05/22/17 08:10 - Constitutional Appears: Well - Head Exam Head Exam: ATRAUMATIC, NORMAL INSPECTION, NORMOCEPHALIC - Eye Exam Eye Exam: EOMI, Normal appearance, PERRL Pupil Exam: NORMAL ACCOMODATION, PERRL - ENT Exam ENT Exam: Mucous Membranes Moist, Normal Exam - Neck Exam Neck Exam: Full ROM, Normal Inspection. absent: Lymphadenopathy - Respiratory Exam Respiratory Exam: Decreased Breath Sounds - Cardiovascular Exam Cardiovascular Exam: REGULAR RHYTHM, +S1, +S2 - GI/Abdominal Exam GI & Abdominal Exam: Soft, Diminished Bowel Sounds - Rectal Exam Rectal Exam: Deferred
[2017-05-22 16:26] VITALS: RESP 20
[2017-05-23 07:09] LABS: ALBUMIN 3.9 g/dL (3.5-5.0)
[2017-05-23 07:12] LABS: ALB/GLOB RATIO 1.2 (1.0-2.1); ALT/SGPT 30 U/L (9-52); AST/SGOT 30 U/L (14-36); BLOOD UREA NITROGEN 11 mg/dL (7-17); GFR AFRICAN-AMERICAN > 60; GFR NON-AFRICAN AMERICAN > 60
[2017-05-23 07:13] LABS: CALCIUM 9.1 mg/dl (8.6-10.4)
[2017-05-23 07:14] LABS: BASO # 0.1 K/uL (0.0-0.2); BASO % 1.8 % (0.0-2.0); EOS # 0.3 K/uL (0.0-0.7); EOS % 4.3 % (0.0-4.0); HEMOGLOBIN 14.2 g/dL (11.0-16.0); LYMPH # 2.6 K/uL (1.0-4.3); LYMPH % 37.9 % (20.0-40.0); MEAN CELL VOLUME 89.6 fL (81.0-99.0); MEAN CORPUSCULAR HEMOGLOBIN 30.1 pg (27.0-31.0); MEAN CORPUSCULAR HGB CONC 33.6 g/dL (33.0-37.0); MEAN PLATELET VOLUME 8.1 fL (7.2-11.7); MONO # 0.7 K/uL (0.0-0.8); MONO % 10.5 % (0.0-10.0); NEUT # 3.1 K/uL (1.8-7.0); NEUT % 45.5 % (50.0-75.0); RBC 4.73 Mil/uL (3.80-5.20); RED CELL DISTRIBUTION WIDTH 14.1 % (11.5-14.5); WHITE BLOOD COUNT 6.9 K/uL (4.8-10.8)
[2017-05-23] MEDS: Potassium Chloride 10 mEq ER Tab PO SCH (08:33)
[2017-05-23] MEDS: Pantoprazole 40 mg EC Tab PO SCH (10:51)
[2017-05-23] MEDS: Vitamin B Complex/Vitamin C Tab PO SCH (10:52)
[2017-05-23] MEDS: POLYETHYLENE GLYCOL 3350 17 GM/Dose PACKET PO SCH (10:56)
--- NOTE | 2017-05-23 11:19 | CP.PCM.PN ---
Subjective - Date & Time of Evaluation Date of Evaluation: 05/23/17 Time of Evaluation: 08:20 - Subjective Subjective: clinically same Objective - Vital Signs/Intake and Output Vital Signs (last 24 hours): Temp Pulse Resp BP Pulse Ox 98.3 F 70 20 120/72 95 05/23/17 08:00 05/23/17 08:00 05/23/17 08:00 05/23/17 08:00 05/23/17 08:00 Intake and Output: 05/23/17 05/23/17 06:59 18:59 Intake Total 320 Balance 320 - Medications Medications: Current Medications Carbidopa/Levodopa (Sinemet ) 1 tab PO TID [facility] Last Admin: 05/23/17 10:50 Dose: 1 tab Clonazepam (Klonopin) 0.5 mg PO HS [facility] Last Admin: 05/22/17 22:00 Dose: 0.5 mg Ergocalciferol (Drisdol 50,000 Intl Units Cap) 1 cap PO QWK [facility] Famotidine (Pepcid) 20 mg PO BID [facility] Last Admin: 05/23/17 10:59 Dose: Not Given Gabapentin (Neurontin) 300 mg PO BID [facility] Last Admin: 05/23/17 10:56 Dose: Not Given Meclizine HCl (Antivert) 12.5 mg PO BID [facility] Last Admin: 05/23/17 10:57 Dose: 12.5 mg Pantoprazole Sodium (Protonix Ec Tab) 40 mg PO DAILY [facility] Last Admin: 05/23/17 10:51 Dose: 40 mg Polyethylene Glycol (Miralax) 17 gm PO DAILY [facility] Last Admin: 05/23/17 10:56 Dose: Not Given Potassium Chloride (Klor-Con 10) 10 meq PO DAILY@0800 [facility] Last Admin: 05/23/17 08:33 Dose: 10 meq Sertraline HCl (Zoloft) 50 mg PO DAILY [facility] Last Admin: 05/23/17 10:59 Dose: Not Given Vitamin B Complex/Vitamin C (Berocca) 1 tab PO DAILY [facility] Last Admin: 05/23/17 10:52 Dose: 1 tab - Labs Labs: 05/23/17 06:57 05/23/17 06:57 - Constitutional Appears: Well - Head Exam Head Exam: ATRAUMATIC, NORMAL INSPECTION, NORMOCEPHALIC - Eye Exam Eye Exam: EOMI, Normal appearance, PERRL Pupil Exam: NORMAL ACCOMODATION, PERRL - ENT Exam ENT Exam: Mucous Membranes Moist, Normal Exam - Neck Exam Neck Exam: Full ROM, Normal Inspection. absent: Lymphadenopathy - Respiratory Exam Respiratory Exam: Decreased Breath Sounds - Cardiovascular Exam Cardiovascular Exam: REGULAR RHYTHM, +S1, +S2 - GI/Abdominal Exam GI & Abdominal Exam: Soft, Diminished Bowel Sounds - Rectal Exam Rectal Exam: Deferred
--- NOTE | 2017-05-23 16:36 | CP.PCM.PN ---
Subjective - Date & Time of Evaluation Date of Evaluation: 05/23/17 Time of Evaluation: 14:00 - Subjective Subjective: [employer]ISITION ANALYST NOTES 82 year old female with h/o Parkinson's disease admitted with abdominal pain and blood in the stool. Pt seen today with Dr. Jesus Manuel correia, states feels fine denies any abdominal pain, tolerating diet no significant drop in HGB and stable - today 14.2 Dr. Juan M Correia cleared for discharge home today an d f/u with Dr. Jesus Manuel correia office in 5-7 days Objective - Vital Signs/Intake and Output Vital Signs (last 24 hours): Temp Pulse Resp BP Pulse Ox 98.3 F 70 20 130/75 98 05/23/17 08:00 05/23/17 11:43 05/23/17 08:00 05/23/17 11:43 05/23/17 11:43 Intake and Output: 05/23/17 05/23/17 06:59 18:59 Intake Total 320 120 Balance 320 120 - Medications Medications: Current Medications Carbidopa/Levodopa (Sinemet /) 1 tab PO TID [facility] Last Admin: 05/23/17 14:45 Dose: 1 tab Clonazepam (Klonopin) 0.5 mg PO HS [facility] Last Admin: 05/22/17 22:00 Dose: 0.5 mg Ergocalciferol (Drisdol 50,000 Intl Units Cap) 1 cap PO QWK [facility] Famotidine (Pepcid) 20 mg PO BID [facility] Last Admin: 05/23/17 10:59 Dose: Not Given Gabapentin (Neurontin) 300 mg PO BID [facility] Last Admin: 05/23/17 10:56 Dose: Not Given Meclizine HCl (Antivert) 12.5 mg PO BID [facility] Last Admin: 05/23/17 10:57 Dose: 12.5 mg Pantoprazole Sodium (Protonix Ec Tab) 40 mg PO DAILY [facility] Last Admin: 05/23/17 10:51 Dose: 40 mg Polyethylene Glycol (Miralax) 17 gm PO DAILY [facility] Last Admin: 05/23/17 10:56 Dose: Not Given Potassium Chloride (Klor-Con 10) 10 meq PO DAILY@0800 [facility] Last Admin: 05/23/17 08:33 Dose: 10 meq Sertraline HCl (Zoloft) 50 mg PO DAILY [facility] Last Admin: 05/23/17 10:59 Dose: Not Given Vitamin B Complex/Vitamin C (Berocca) 1 tab PO DAILY [facility] Last Admin: 05/23/17 10:52 Dose: 1 tab - Labs Labs: 05/23/17 06:57 05/23/17 06:57
[2017-05-23 16:37] VITALS: BP 107/68; PULSE 69; TEMP 97.9; O2SAT 96
[2017-05-26] MEDS ORDERED: Ergocalciferol 50,000 Intl Units Cap PO SCH (10:00)
== END 2017-05-23 18:45 | disposition home or self-care (01) | DRG 189 ==
LOC: C.ER 11:28 → C.9E 13:24 → C.3T 16:23 → OBSVTOIN 05-20 17:27 → C.3T 05-21 22:51
PROVIDERS: ADMIT Internal Medicine Nephrology; ATTEND Internal Medicine Nephrology
DX: K64.4 Residual hemorrhoidal skin tags (principal); G20 Parkinson's disease; F02.80 Dementia in other diseases classified elsewhere, unspecified severity, without behavioral disturbance, psychotic disturbance, mood disturbance, and anxiety; Z94.7 Corneal transplant status; K59.00 Constipation, unspecified; R30.0 Dysuria

== ENCOUNTER 2018-04-01 16:27 | Emergency (ER) | payer MEDICAID ==
[2018-04-01 16:30] VITALS: O2SAT 97
[2018-04-01] MEDS ORDERED: DiphenhydrAMINE 50 mg/ml Inj IVP STA (16:46)
--- NOTE | 2018-04-01 16:47 | C.PDOC ---
History Of Present Illness 82 year old female presents to the emergency department with complaints of facial flushing along with a generalized itching rash with a sudden onset at 11AM this morning. Patient was recently started on Cefdinir for a UTI. Patient denies any swelling of the tongue, shortness of breath, or prior history of Penicillin or Cephalosporin allergies. Patient states that he had only taken a second dose of her Cefdniir, and also reported taking Benadryl twice at home with no relief of symptoms. Time Seen by Provider: 04/01/18 16:40 Chief Complaint (Nursing): Allergic Reaction History Per: Patient History/Exam Limitations: no limitations Onset/Duration Of Symptoms: Hrs (5) Current Symptoms Are (Timing): Still Present Possible Cause: Medication Associated Symptoms: Skin Rash, Itching, Other (facial flushing). denies: Swelling, Dyspnea Past Medical History Reviewed: Historical Data, Nursing Documentation, Vital Signs Vital Signs: Last Vital Signs Temp 97.7 F 04/01/18 18:34 Pulse 66 04/01/18 18:34 Resp 18 04/01/18 18:34 BP 144/60 04/01/18 18:34 Pulse Ox 97 04/01/18 18:34 - Medical History PMH: Arthritis, Dementia, Gastritis, Parkinson's Disease Surgical History: No Surg Hx Family History: States: No Known Family Hx - Social History Hx Alcohol Use: No Hx Substance Use: No - Immunization History Hx Tetanus Toxoid Vaccination: No Hx Influenza Vaccination: Yes Hx Pneumococcal Vaccination: No Review Of Systems ENT: Negative for: Other (tongue swelling) Respiratory: Negative for: Shortness of Breath Skin: Positive for: Rash (itchy), Other (facial flushing) Physical Exam - Physical Exam Appears: Non-toxic, No Acute Distress Skin: Warm, Rash (diffuse, blanching, maculopapular rash involving the face, bilateral arms, upper chest, and bilateral lower extremities.) Tongue: Normal Appearing, No Swelling Lips: Normal Appearing, No Swelling Cardiovascular: Rhythm Regular Respiratory: Normal Breath Sounds (clear to auscultation), No Stridor Gastrointestinal/Abdominal: Normal Exam, Soft, No Tenderness ED Course And Treatment O2 Sat by Pulse Oximetry: 97 (RA) Pulse Ox Interpretation: Normal Medical Decision Making Medical Decision Making: Plan: Benadryl 25mg IVP Pepcid 20mg IVP Solu-Medrol 125mg IV Impression: Allergic reaction Steroids and histamine blockers administered intravenously. Will re-assess. 18:15: on reassessment the patient reports that her itching has improved, as has the rash. The erythema across her face is improved as well after the course of H2 blockers. Disposition - Disposition Referrals: [facility] [Outside] Disposition: HOME/ ROUTINE Disposition Time: 23:27 Condition: FAIR Prescriptions: Famotidine [Pepcid] 40 mg PO DAILY #5 tab Nitrofurantoin Macrocrystal [Nitrofurantoin] 100 mg PO BID #14 capsule Prednisone [Deltasone] 20 mg PO DAILY #5 tablet Instructions: Urinary Tract Infections in Adults, Allergy Testing, Allergy to Penicillins Forms: [employer] (South African) Print Language: UZBEK - Clinical Impression Clinical Impression: Allergic urticaria, Allergic reaction - Scribe Statement The provider has reviewed the documentation as recorded by the Scribe (William Ceballos) Provider Attestation: All medical record entries made by the Scribe were at my direction and personally dictated by me. I have reviewed the chart and agree that the record accurately reflects my personal performance of the history, physical exam, medical decision making, and the department course for this patient. I have also personally directed, reviewed, and agree with the discharge instructions and disposition.
[2018-04-01] MEDS ORDERED: DiphenhydrAMINE 50 mg/ml Inj ONE (16:53)
[2018-04-01 17:43] VITALS: BP 144/60
[2018-04-01 18:35] VITALS: PULSE 66; RESP 18; TEMP 97.7
== END 2018-04-01 18:35 | disposition home or self-care (01) ==
LOC: C.ER 16:27
DX: L50.0 Allergic urticaria (principal); G20 Parkinson's disease; F03.90 Unspecified dementia, unspecified severity, without behavioral disturbance, psychotic disturbance, mood disturbance, and anxiety
CPT/HCPCS: 96374; 96375; 99285; J1200; J2930

== ENCOUNTER 2018-04-03 13:24 | Emergency (ER) | payer MEDICAID ==
--- NOTE | 2018-04-03 13:42 | C.PDOC ---
History Of Present Illness 82yo female with history of parkinson's disease and degenerative joint disease, presents to ER for evaluation of a drug reaction with rash and pruritis. Patient was evaluated in this ER on 04/01 for a facial flush and generalized rash ; patient was on a course of cefdinr during the reaction. During that visit, patient was given steroids and her antibiotic was switched to macrobid. Patient reports, today her daughter gave Macrobid and prednisone and presented with rash. She denies any stridor, tongue swelling, lip swelling, shortness of breath or chest pain. Patient has no other medical complaints. PMD: Dr. Callaway Time Seen by Provider: 04/03/18 13:31 Chief Complaint (Nursing): Allergic Reaction History Per: Patient History/Exam Limitations: no limitations Current Symptoms Are (Timing): Still Present Possible Cause: Medication Associated Symptoms: Skin Rash, Itching Home/EMS Treatment: Steroids Past Medical History Reviewed: Historical Data, Nursing Documentation, Vital Signs Vital Signs: Last Vital Signs Temp 98.2 F 04/03/18 19:38 Pulse 74 04/03/18 19:38 Resp 18 04/03/18 19:38 BP 128/76 04/03/18 19:38 Pulse Ox 98 04/03/18 19:38 - Medical History PMH: Arthritis, Dementia, Gastritis, Parkinson's Disease Other Surgeries: cataract surgery Family History: States: No Known Family Hx, Unknown Family Hx - Social History Hx Tobacco Use: No Hx Alcohol Use: No Hx Substance Use: No - Immunization History Hx Tetanus Toxoid Vaccination: No Hx Influenza Vaccination: Yes Hx Pneumococcal Vaccination: No Review Of Systems Except As Marked, All Systems Reviewed And Found Negative. Constitutional: Negative for: Fever, Chills Eyes: Negative for: Pain ENT: Negative for: Ear Pain, Ear Discharge, Mouth Swelling, Throat Swelling Cardiovascular: Negative for: Chest Pain, Palpitations, Orthopnea, Paroxysmal Noc. Dyspnea Respiratory: Negative for: Cough, Shortness of Breath Gastrointestinal: Negative for: Abdominal Pain Genitourinary: Negative for: Dysuria, Frequency, Hematuria Musculoskeletal: Negative for: Neck Pain, Shoulder Pain, Arm Pain Skin: Positive for: Rash Neurological: Negative for: Headache Psych: Negative for: Anxiety, Depression (drug reaction rash) Physical Exam - Physical Exam Appears: Non-toxic, No Acute Distress Skin: Warm, Dry, Rash (diffuse drug reaction rash to whole body) Head: Atraumatic, Normacephalic Eye(s): bilateral: Normal Inspection, PERRL, EOMI Nose: Normal Oral Mucosa: Moist Tongue: Normal Appearing, No Swelling Lips: Normal Appearing, No Swelling Throat: Normal, No Erythema Neck: Normal ROM, Supple Chest: Symmetrical Cardiovascular: Rhythm Regular Respiratory: Normal Breath Sounds, No Wheezing Gastrointestinal/Abdominal: Normal Exam, Soft, No Tenderness Back: Normal Inspection Extremity: Normal ROM, No Deformity Neurological/Psych: Oriented x3, Normal Speech ED Course And Treatment - Laboratory Results Result Diagrams: 04/03/18 14:35 04/03/18 14:35 O2 Sat by Pulse Oximetry: 98 (RA) Pulse Ox Interpretation: Normal Medical Decision Making Medical Decision Making: Impression: Allergic reaction Plan: -- Solumedrol 125mg IVP -- Benadryl 25mg PO -- Pepcid 20mg PO -- Labs -- Urinalysis Urine is negative. Advised patient to discontinue antibiotics. Patient instructed to continue prednisone and follow up with a primary doctor in 1-2 days Disposition Counseled Patient/Family Regarding: Diagnosis, Need For Followup - Disposition Referrals: [facility] [Outside] [facility] [Outside] formerly [facility] [Outside] Disposition: HOME/ ROUTINE Disposition Time: 19:21 Condition: GOOD Additional Instructions: retrun if symptoms return Forms: [employer] (Samoan) - POA Present On Arrival: None - Clinical Impression Clinical Impression: Allergic reaction - Scribe Statement The provider has reviewed the documentation as recorded by the Scribe (Susy Moeller) Provider Attestation: All medical record entries made by the Scribe were at my direction and personally dictated by me. I have reviewed the chart and agree that the record accurately reflects my personal performance of the history, physical exam, medical decision making, and the department course for this patient. I have also personally directed, reviewed, and agree with the discharge instructions and disposition.
[2018-04-03] MEDS ORDERED: DiphenhydrAMINE 50 mg/ml Inj IM STA (14:29)
[2018-04-03 14:44] LABS: BASO # 0.1 K/uL (0.0-0.2); BASO % 0.9 % (0.0-2.0); EOS % 0.2 % (0.0-4.0); HEMOGLOBIN 13.4 g/dL (11.0-16.0); LYMPH # 1.4 K/uL (1.0-4.3); LYMPH % 12.2 % (20.0-40.0); MEAN CELL VOLUME 89.6 fL (81.0-99.0); MEAN CORPUSCULAR HEMOGLOBIN 31.3 pg (27.0-31.0); MEAN PLATELET VOLUME 8.2 fL (7.2-11.7); MONO # 0.4 K/uL (0.0-0.8); MONO % 3.5 % (0.0-10.0); NEUT # 9.2 K/uL (1.8-7.0); NEUT % 83.2 % (50.0-75.0); RBC 4.29 Mil/uL (3.80-5.20); RED CELL DISTRIBUTION WIDTH 14.6 % (11.5-14.5); WHITE BLOOD COUNT 11.1 K/uL (4.8-10.8)
[2018-04-03] MEDS ORDERED: DiphenhydrAMINE 50 mg/ml Inj ONE (14:54)
[2018-04-03 14:55] LABS: ALB/GLOB RATIO 1.3 (1.0-2.1); ALBUMIN 4.2 g/dL (3.5-5.0); CALCIUM 8.9 mg/dl (8.6-10.4); GFR AFRICAN-AMERICAN > 60; GFR NON-AFRICAN AMERICAN > 60; LIPASE 34 U/L (23-300)
[2018-04-03 14:58] LABS: ALT/SGPT 18 U/L (9-52); AST/SGOT 31 U/L (14-36); BLOOD UREA NITROGEN 21 mg/dL (7-17)
[2018-04-03 18:22] LABS: SQUAMOUS EPITHIAL < 1 /hpf (0-5); URINE BILIRUBIN NEGATIVE (NEGATIVE); URINE BLOOD 1+ (NEGATIVE); URINE CLARITY Clear (Clear); URINE COLOR Yellow (YELLOW); URINE GLUCOSE (UA) NORMAL (Normal); URINE LEUKOCYTE ESTERASE NEG Leu/uL (Negative); URINE PROTEIN NEGATIVE (NEGATIVE); URINE UROBILINOGEN NORMAL mg/dL (0.2-1.0)
[2018-04-03 19:22] VITALS: O2SAT 98
[2018-04-03 19:39] VITALS: BP 128/76; PULSE 74; RESP 18; TEMP 98.2
== END 2018-04-03 19:38 | disposition home or self-care (01) ==
LOC: C.ER 13:24
DX: T78.40XA Allergy, unspecified, initial encounter (principal); G20 Parkinson's disease
CPT/HCPCS: 80053; 81001; 82948; 83690; 85025; 96372; 96374; 99285; J1200; J2930

== ENCOUNTER 2018-06-16 18:18 | Emergency (ER) | payer MEDICAID ==
[2018-06-16 18:36] VITALS: BMI 24.3
[2018-06-16] MEDS ORDERED: Sodium Chloride 0.9% 500 ML IV ONE (18:36)
[2018-06-16] MEDS ORDERED: DiphenhydrAMINE 50 mg/ml Inj IVP STA (18:37)
[2018-06-16 18:38] VITALS: RESP 18
--- NOTE | 2018-06-16 18:47 | C.PDOC ---
History Of Present Illness 83 year old female presents to ED with daughter. Daughter states patient woke up this morning and ate breakfast which she soon vomited up afterwards. Later in the day she had lunch and was fine. Daughter reports at 15:00 patient had itching on her hands and was diffusely erythematous on her arms, face, trunk of body. Daughter states that patient had several similar episodes in the past and had allergy testing done, but testing could not find out the source of the issue. Denies trouble breathing, swelling around the mouth, dizziness, light headedness. Time Seen by Provider: 06/16/18 18:30 Chief Complaint (Nursing): Allergic Reaction History Per: Family History/Exam Limitations: no limitations Onset/Duration Of Symptoms: Hrs Current Symptoms Are (Timing): Still Present Possible Cause: Unknown Associated Symptoms: Skin Rash, Itching, Redness. denies: Swelling, Dizziness, Chest Pain Recent travel outside of the [place]: No Past Medical History Reviewed: Historical Data, Nursing Documentation, Vital Signs Vital Signs: Last Vital Signs Temp 98.6 F 06/16/18 18:36 Pulse 88 06/16/18 18:36 Resp 18 06/16/18 18:36 BP 122/60 06/16/18 18:36 Pulse Ox 97 06/16/18 18:59 - Medical History PMH: Arthritis, Dementia, Gastritis, Parkinson's Disease Surgical History: No Surg Hx Family History: States: No Known Family Hx - Social History Hx Tobacco Use: No Hx Alcohol Use: No Hx Substance Use: No - Immunization History Hx Tetanus Toxoid Vaccination: No Hx Influenza Vaccination: Yes Hx Pneumococcal Vaccination: No Review Of Systems ENT: Negative for: Mouth Swelling Cardiovascular: Negative for: Light Headedness Respiratory: Negative for: Shortness of Breath, Wheezing Skin: Positive for: Rash (erythematous) Neurological: Negative for: Weakness, Numbness, Dizziness Physical Exam - Physical Exam Appears: Non-toxic, No Acute Distress Skin: Other (generally erythematous) Head: Atraumatic, Normacephalic Eye(s): right: Other (corneal clouding) Oral Mucosa: Moist Neck: Supple Respiratory: Normal Breath Sounds, No Rales, No Rhonchi, No Wheezing Gastrointestinal/Abdominal: Soft Neurological/Psych: Oriented x3 Gait: Steady ED Course And Treatment - Laboratory Results Result Diagrams: 06/16/18 19:01 06/16/18 19:01 Lab Interpretation: No Acute Changes O2 Sat by Pulse Oximetry: 97 (RA) Pulse Ox Interpretation: Normal Reevaluation Time: 20:20 Reassessment Condition: Improved (after IV Benadryl and SoluMedrol) Medical Decision Making Medical Decision Making: Impression: diffuse erythema Plan * labs * Benadryl * Pepcid * methylprednisolone * IV fluids Disposition Counseled Patient/Family Regarding: Studies Performed, Diagnosis, Need For Followup, Rx Given - Disposition Referrals: Shaik Callaway MD [Staff Provider] - Disposition: HOME/ ROUTINE Disposition Time: 20:21 Condition: IMPROVED Prescriptions: Methylprednisolone [Medrol Dose Pack (21 tabs)] 4 mg PO DAILY #21 mg Instructions: Food Allergy Forms: [employer] (Sammarinese) Print Language: GREEK - Clinical Impression Clinical Impression: Allergic reaction - Scribe Statement The provider has reviewed the documentation as recorded by the Gen Patricioed Provider Attestation: All medical record entries made by the Gen were at my direction and personally dictated by me. I have reviewed the chart and agree that the record accurately reflects my personal performance of the history, physical exam, medical decision making, and the department course for this patient. I have also personally directed, reviewed, and agree with the discharge instructions and disposition.
[2018-06-16] MEDS ORDERED: DiphenhydrAMINE 50 mg/ml Inj ONE (18:52)
[2018-06-16 19:04] LABS: BASO # 0.1 K/uL (0.0-0.2); EOS # 0.3 K/uL (0.0-0.7); EOS % 3.1 % (0.0-4.0); LYMPH # 2.7 K/uL (1.0-4.3); MEAN CELL VOLUME 88.7 fL (81.0-99.0); MEAN CORPUSCULAR HEMOGLOBIN 30.6 pg (27.0-31.0); MEAN CORPUSCULAR HGB CONC 34.5 g/dL (33.0-37.0); MEAN PLATELET VOLUME 7.9 fL (7.2-11.7); MONO # 0.4 K/uL (0.0-0.8); NEUT # 4.8 K/uL (1.8-7.0); NEUT % 57.9 % (50.0-75.0); NRBC % 0.2 % (0.0-2.0); RBC 4.92 Mil/uL (3.80-5.20); RED CELL DISTRIBUTION WIDTH 14.9 % (11.5-14.5); WHITE BLOOD COUNT 8.2 K/uL (4.8-10.8)
[2018-06-16 19:19] LABS: ALB/GLOB RATIO 1.6 (1.0-2.1); ALBUMIN 4.5 g/dL (3.5-5.0); ALT/SGPT 19 U/L (9-52); AST/SGOT 19 U/L (14-36); BLOOD UREA NITROGEN 15 mg/dL (7-17); CALCIUM 9.5 mg/dl (8.6-10.4); GFR AFRICAN-AMERICAN > 60; GFR NON-AFRICAN AMERICAN > 60
[2018-06-16 21:02] VITALS: BP 124/59; PULSE 82; TEMP 98; O2SAT 99
== END 2018-06-16 20:35 | disposition home or self-care (01) ==
LOC: C.ER 18:18
DX: T78.40XA Allergy, unspecified, initial encounter (principal)
CPT/HCPCS: 80053; 82948; 85025; 96361; 96374; 96375; 99284; J1200; J2930; J7040

== ENCOUNTER 2018-10-02 00:31 | Emergency (ER) | payer MEDICAID ==
[2018-10-02 00:31] VITALS: BMI 24.3
--- NOTE | 2018-10-02 00:37 | C.PDOC ---
History Of Present Illness 83 year old female presents to the ED for evaluation of diffuse allergic reaction. Patient has been seen previously in the ED for similar presentation, Patient reports unknown etiology. Patient speaking in complete sentences. Patient denies fever, chills, nausea, vomit, facial swelling, lip swelling, SOB, recent travel, sick contacts. Time Seen by Provider: 10/02/18 00:37 Chief Complaint (Nursing): Allergic Reaction History Per: Patient History/Exam Limitations: no limitations Onset/Duration Of Symptoms: Days Current Symptoms Are (Timing): Still Present Context: Other Possible Cause: Unknown Associated Symptoms: Skin Rash Recent travel outside of the [place]: No Additional History Per: Patient Past Medical History Reviewed: Historical Data, Nursing Documentation, Vital Signs Vital Signs: Last Vital Signs Temp 97.6 F 10/02/18 00:32 Pulse 103 H 10/02/18 00:32 Resp 22 10/02/18 00:32 BP 125/64 10/02/18 00:32 Pulse Ox 95 10/02/18 00:32 - Medical History PMH: Arthritis, Dementia, Gastritis, Parkinson's Disease Surgical History: No Surg Hx Family History: States: Unknown Family Hx - Social History Hx Tobacco Use: No Hx Alcohol Use: No Hx Substance Use: No - Immunization History Hx Tetanus Toxoid Vaccination: No Hx Influenza Vaccination: No Hx Pneumococcal Vaccination: No Review Of Systems Constitutional: Negative for: Fever, Chills ENT: Negative for: Mouth Swelling, Throat Swelling Respiratory: Negative for: Cough, Shortness of Breath Gastrointestinal: Negative for: Nausea, Vomiting Skin: Positive for: Rash Neurological: Negative for: Headache, Dizziness Physical Exam - Physical Exam Appears: Non-toxic, No Acute Distress Skin: Warm, Dry, Rash Head: Normacephalic Eye(s): bilateral: Normal Inspection Oral Mucosa: Moist Tongue: No Swelling Lips: No Swelling Throat: No Erythema, No Exudate, No Drooling Neck: Supple Chest: Symmetrical Cardiovascular: Rhythm Regular Respiratory: No Rales, No Rhonchi, No Wheezing Gastrointestinal/Abdominal: Soft, No Tenderness, No Guarding, No Rebound Extremity: Bilateral: Atraumatic, Normal Color And Temperature, Normal ROM Neurological/Psych: Oriented x3, Normal Speech, Normal Cognition Gait: Unable To Assess ED Course And Treatment O2 Sat by Pulse Oximetry: 95 (ON RA) Pulse Ox Interpretation: Normal Progress Note: Plan: - Beandryl 25 mg IVP. - Morphine 2 mg IVP. - Pepcid 20 mg IVO. - Solumedrol 125 mg IVP. - Zofran 4 mg IVP. Urticarial rash resolved. Lungs are cta Reevaluation Time: 02:17 Reassessment Condition: Improved Critical Care Time - Critical Care Note Total Time (in mins): 30 Documented critical care: time excludes all time spent performing seperately billable procedures. Disposition Counseled Patient/Family Regarding: Studies Performed, Diagnosis, Need For Followup, Rx Given - Disposition Referrals: Shaik Callaway MD [Staff Provider] - Disposition: HOME/ ROUTINE Disposition Time: 00:37 Condition: FAIR Additional Instructions: Por favor regrese si los sntomas recurren. Tambin use benadryl, pepcid y claritin Prescriptions: Epinephrine [Epipen] 0.3 mg IJ ONCE PRN #2 auto.injct PRN Reason: Anaphylaxis Prednisone [Deltasone] 20 mg PO DAILY #5 tablet Instructions: Skin Rash (DC) Forms: [employer] (Macedonian) Print Language: IRANIAN - Clinical Impression Clinical Impression: Allergic urticaria - Scribe Statement The provider has reviewed the documentation as recorded by the Scribe Hema Barajas All medical record entries made by the Scribe were at my direction and personally dictated by me. I have reviewed the chart and agree that the record accurately reflects my personal performance of the history, physical exam, medical decision making, and the department course for this patient. I have also personally directed, reviewed, and agree with the discharge instructions and disposition.
[2018-10-02] MEDS ORDERED: DiphenhydrAMINE 50 mg/ml Inj IVP STA (00:38)
[2018-10-02] MEDS ORDERED: DiphenhydrAMINE 50 mg/ml Inj ONE (00:39)
[2018-10-02 01:35] VITALS: TEMP 97.6
[2018-10-02 02:34] VITALS: BP 134/64; PULSE 69; RESP 20; O2SAT 97
== END 2018-10-02 02:34 | disposition home or self-care (01) ==
LOC: C.ER 00:31
DX: L50.0 Allergic urticaria (principal)
CPT/HCPCS: 96372; 96374; 96375; 99284; J1200; J2270; J2405; J2930

== ENCOUNTER 2019-03-28 15:41 | Emergency (ER) | payer MEDICAID ==
[2019-03-28 15:42] VITALS: BMI 24.3
--- NOTE | 2019-03-28 15:54 | C.PDOC ---
History Of Present Illness 83 year old female comes to ED via transport for evaluation of recurrent generalized itching and facial hives for the past 3 hours. Patient states that she has a history of similar prior reactions. Patient states that she has seen a specialist and states "But they don't know whats causing it." Patient also complains of facial swelling. She denies SOB, wheezing, nausea, and vomiting. VIA TRANS RECUR GEN ITCH, FACIAL HIVES X 3 HRS. PS HO SIM PRIOR REACTIONS, HAS SEEN SPECIALISTS "BUT THEY DONT KNOW WHATS CAUSING IT". +FACIAL SWELL DENIES SOB, WHEEZE, NV EXAM NONTOXIC HEENT R FACIAL ANGIOEDEMA MILD NO STRIDOR, DROOL LUNGS CTA B/L NO W/R/R SKIN +HIVES FACE, NECK REMAINDER NEG Time Seen by Provider: 03/28/19 15:51 Chief Complaint (Nursing): Allergic Reaction History Per: Patient History/Exam Limitations: no limitations Onset/Duration Of Symptoms: Hrs (3) Current Symptoms Are (Timing): Still Present Associated Symptoms: Skin Rash, Swelling. denies: Dyspnea, Other (wheezing) Past Medical History Reviewed: Historical Data, Nursing Documentation, Vital Signs - Medical History PMH: Arthritis, Dementia, Gastritis, Parkinson's Disease Surgical History: No Surg Hx Family History: States: Unknown Family Hx - Social History Hx Tobacco Use: No Hx Alcohol Use: No Hx Substance Use: No - Immunization History Hx Tetanus Toxoid Vaccination: No Hx Influenza Vaccination: Yes Hx Pneumococcal Vaccination: No Review Of Systems Except As Marked, All Systems Reviewed And Found Negative. ENT: Positive for: Other (+facial swelling) Skin: Positive for: Rash (generalized itching and facial hives) Physical Exam - Physical Exam Appears: Well, Non-toxic, No Acute Distress Skin: Dry, Rash (+hives to the face and neck ) Head: Atraumatic, Normacephalic, Swelling (mild right sided facial angioedema) Eye(s): bilateral: Normal Inspection, PERRL, EOMI Oral Mucosa: Moist Throat: Normal, No Drooling Neck: Normal ROM, Supple Chest: Symmetrical, No Deformity Cardiovascular: Rhythm Regular, No Murmur Respiratory: No Accessory Muscle Use, No Rales, No Rhonchi, No Stridor, No Wheezing, Other (NARD) Gastrointestinal/Abdominal: Soft, No Tenderness Extremity: Capillary Refill (<2 seconds) Extremity: Bilateral: Atraumatic, Normal Color And Temperature, Normal ROM Pulses: Left Radial: Normal, Right Radial: Normal Neurological/Psych: Oriented x3, Normal Speech, Normal Cognition, Normal Sensation ED Course And Treatment O2 Sat by Pulse Oximetry: 98 Pulse Ox Interpretation: Normal Progress Note: Patient given Benadryl IVP, Pepcid IVP, and solu-medrol IVP. Reevaluation Time: 16:49 Reassessment Condition: Improved (HIVES RESOLVED NARD APPEARS COMFORTABLE. FAMILY @ BEDSIDE) Disposition Counseled Patient/Family Regarding: Diagnosis, Need For Followup, Rx Given - Disposition Referrals: YOUR,PMD [Other] Disposition: HOME/ ROUTINE Disposition Time: 16:49 Condition: IMPROVED Prescriptions: Famotidine [Pepcid AC] 10 mg PO DAILY #4 tablet predniSONE [Prednisone] 60 mg PO DAILY #12 tab Instructions: Hives (DC) Forms: [employer] (Malaysian) Print Language: CZECH - Clinical Impression Clinical Impression: Urticaria - Scribe Statement The provider has reviewed the documentation as recorded by the Scribe (Leora Suarez) All medical record entries made by the Scribe were at my direction and personally dictated by me. I have reviewed the chart and agree that the record accurately reflects my personal performance of the history, physical exam, medical decision making, and the department course for this patient. I have also personally directed, reviewed, and agree with the discharge instructions and disposition.
[2019-03-28] MEDS ORDERED: DiphenhydrAMINE 50 mg/ml Inj IVP STA (15:55)
[2019-03-28] MEDS ORDERED: MethylPREDNISolone 40 mg Vial IVP STA (15:56)
[2019-03-28] MEDS ORDERED: MethylPREDNISolone 40 mg Vial ONE (16:03)
[2019-03-28] MEDS ORDERED: DiphenhydrAMINE 50 mg/ml Inj ONE (16:03)
[2019-03-28 17:17] VITALS: BP 112/68; PULSE 65; RESP 18; TEMP 97.5; O2SAT 95
== END 2019-03-28 17:19 | disposition home or self-care (01) ==
LOC: C.ER 15:41
DX: L50.9 Urticaria, unspecified (principal)
CPT/HCPCS: 96374; 96375; 99284; J1200; J2920